=== PATIENT | female | born 1985 | race Caucasian/White ===

== ENCOUNTER 2016-07-24 11:55 | Outpatient (CLI) | payer OTHER ==
--- NOTE | 2016-07-24 12:57 | DIAGNOSTIC IMAGING REPORT ---
PROCEDURE: US OB LIMITED INDICATION: VERIFY PRESENTIATION AND POSITIONING TECHNIQUE: Esteban scale and color Doppler sonographic images obtained of the gravid uterus. COMPARISON: None. FINDINGS: Single intrauterine with vertex presentation, anterior placenta without previa and heart rate 149 bpm. Normal closed cervix measures 4 cm. Kidneys and bladder are unremarkable. IMPRESSION: 1. Single live intrauterine with vertex presentation
== END 2016-07-24 23:00 | disposition home or self-care (01) ==
LOC: US SRH 11:55
DX: Z34.90 Encounter for supervision of normal pregnancy, unspecified, unspecified trimester (principal)